=== PATIENT | female | born 1990 | race Caucasian/White ===

== ENCOUNTER 2016-12-07 02:23 | Emergency (ER) | payer OTHER ==
[~2016-12-07] VITALS: Ht 165.1 cm; Wt 56.7 kg
[~2016-12-07 02:23] MED LIST: CARI350T PO; STADOL NS
[2016-12-07 02:50] VITALS: BP 139/86
--- NOTE | 2016-12-07 03:06 | PHYS DOC ---
Past Medical History Past Medical History: Anxiety, Depression, Other Additional Past Medical Histor: Chronic back pain, PPD Past Surgical History: No Surgical History, Cholecystectomy Alcohol Use: None Drug Use: None Adult General Chief Complaint Chief Complaint: ANXIETY/PANIC ATTACK HPI HPI Patient is a 26 year old female who presents here today secondary to "I'm having a panic attack ". Patient reports that she is going through divorce and her has her baby. Patient reports she feels very anxious and is unable sleep. Patient reports she's got some pressure sensation in her midsternal area. Patient has any fevers shakes chills nausea vomiting diarrhea cough cold runny nose. Patient has any abdominal pain. Patient has no history of hypertension diabetes liver longer kidney problems. Patient is status post cholecystectomy. Patient does smoke no alcohol or drugs. No known drug allergies. Last menstrual period is current. No suicidal or homicidal ideations. No hallucinations. No prior mental health issues. Patient reports that she takes Soma for muscle spasms and Stadol for pain. Patient's physical exam is unremarkable the ER. Patient's heart rate is between 100-110. Patient's heart Regular rate and rhythm. Lungs were clear. Abdomen was benign. Neuro GCS of 15. Alert awake and oriented 3. Review of Systems Review of Systems Constitutional: Denies fever or chills [] Eyes: Denies change in visual acuity, redness, or eye pain [] All other review systems are negative except as documented in the history of present illness portion. Allergies Allergies Allergies Coded Allergies Type Severity Reaction Last Updated Verified sertraline Allergy Unknown 12/07/16 Yes amoxicillin Adverse Reaction Intermediate Nausea and Vomiting 04/17/14 No clavulanic acid Adverse Reaction Intermediate Nausea and Vomiting 04/17/14 No Physical Exam Physical Exam Constitutional: Well developed, well nourished, no acute distress, non-toxic appearance. [] HENT: Normocephalic, atraumatic, bilateral external ears normal, Eyes: PERRLA, EOMI, conjunctiva normal, Neck: Normal range of motion, no tenderness, supple, Cardiovascular:Heart rate regular rhythm, no murmur [] Lungs & Thorax: Bilateral breath sounds clear to auscultation [] Abdomen: Bowel sounds normal, soft, no tenderness, no masses, Skin: Warm, dry, no erythema, no rash. [] Back: No tenderness, no CVA tenderness. [] Extremities: No tenderness, no cyanosis, no clubbing, ROM intact, no edema. [] Neurologic: Alert and oriented X 3, normal motor function, normal sensory function, no focal deficits noted. [] Psychologic: Affect normal, judgement normal, mood normal. [] Current Patient Data Vital Signs Vital Signs Date Time Temp Pulse Resp B/P Pulse Ox O2 Delivery O2 Flow Rate FiO2 12/07/16 02:50 98.6 117 24 139/86 100 Room Air 98.6 Lab Values Laboratory Tests Test 12/07/16 02:51 POC Urine HCG, Qualitative Hcg negative (Negative) EKG EKG [] Radiology/Procedures Radiology/Procedures [] Course & Med Decision Making Course & Med Decision Making Pertinent Labs and Imaging studies reviewed. (See chart for details) [] Dragon Disclaimer Dragon Disclaimer This electronic medical record was generated, in whole or in part, using a voice recognition dictation system. Departure Departure Impression: Primary Impression: Anxiety Disposition: 01 HOME, SELF-CARE Condition: STABLE Referrals: NON,STAFF (PCP) Patient Instructions: Anxiety and Panic Attacks HARLEY TORREZ MD Dec 07, 2016 03:06
[2016-12-07] MEDS ORDERED: ALPRAZOLAM 0.5 MG TABLET PO ONE (03:30)
== END 2016-12-07 03:20 | disposition home or self-care (01) ==
LOC: ER 02:23
DX: F41.9 Anxiety disorder, unspecified (principal); F41.0 Panic disorder [episodic paroxysmal anxiety]; G89.29 Other chronic pain; Z88.1 Allergy status to other antibiotic agents; Z88.8 Allergy status to other drugs, medicaments and biological substances
CPT/HCPCS: 81025; 99284

== ENCOUNTER 2016-12-16 19:43 | Emergency (ER) | payer OTHER ==
[~2016-12-16] VITALS: Ht 165.1 cm; Wt 55.8 kg
[2016-12-16 20:30] VITALS: BP 137/86
[2016-12-16 21:31] LABS: OBC FLU VALID
--- NOTE | 2016-12-16 21:46 | PHYS DOC ---
Past Medical History Past Medical History: Anxiety, Depression, Other Additional Past Medical Histor: Chronic back pain, PPD Past Surgical History: Cholecystectomy Smoking: Less than 1pk/day Alcohol Use: None Drug Use: None Adult General Chief Complaint Chief Complaint: EARACHE/EAR PAIN HPI HPI Patient is a 26 year old female who presents with fever and bilateral ear pain for 2 days. She reports temperature up to 100.9F. She is also had nasal congestion, productive cough, and shortness of breath. She denies sore throat or vomiting. She does not have a PCP. Review of Systems Review of Systems Constitutional: Reports fever. Eyes: Denies change in visual acuity, redness, or eye pain. [] HENT: Denies sore throat. Reports bilateral ear pain and nasal congestion. Respiratory: Reports productive cough and shortness of breath. Cardiovascular: Denies chest pain, palpitations or edema. [] GI: Denies abdominal pain, nausea, vomiting, bloody stools or diarrhea. [] : Denies dysuria, hematuria or urinary frequency. [] Musculoskeletal: Denies back pain or joint pain. [] Integument: Denies rash or skin lesions. [] Neurologic: Denies headache, focal weakness or sensory changes. [] Endocrine: Denies polyuria or polydipsia. [] Psych: Denies anxiety or depression. [] All systems reviewed and negative unless otherwise stated in the HPI. Current Medications Current Medications Current Medications Medications (Trade) Dose Ordered Sig/[facility] Start Time Stop Time Status Last Admin Dose Admin Acetaminophen (Tylenol) 1,000 mg 1X ONCE 12/16/16 22:15 12/16/16 22:16 UNV Allergies Allergies Allergies Coded Allergies Type Severity Reaction Last Updated Verified sertraline Allergy Intermediate 12/07/16 Yes amoxicillin Adverse Reaction Intermediate Nausea and Vomiting 04/17/14 No clavulanic acid Adverse Reaction Intermediate Nausea and Vomiting 04/17/14 No Physical Exam Physical Exam Constitutional: Well developed, well nourished, no acute distress, non-toxic appearance. [] HENT: Normocephalic, atraumatic, bilateral external ears normal, oropharynx moist, no oral exudates, nose normal. Bilateral TMs without erythema or bulging. There is no posterior pharyngeal erythema or tonsillar edema. Bilateral nasal turbinates are swollen and erythematous with purulent drainage. Eyes: PERRLA, EOMI, conjunctiva normal, no discharge. [] Neck: Normal range of motion, no tenderness, supple, no stridor. [] Cardiovascular:Heart rate regular rhythm, no murmur [] Lungs & Thorax: X-ray wheezing in the right lower lobe without rales or rhonchi. No respiratory distress. Skin: Warm, dry, no erythema, no rash. [] Neurologic: Alert and oriented X 3, normal motor function, normal sensory function, no focal deficits noted. [] Psychologic: Affect normal, judgement normal, mood normal. [] Current Patient Data Vital Signs Vital Signs Date Time Temp Pulse Resp B/P Pulse Ox O2 Delivery O2 Flow Rate FiO2 12/16/16 20:30 98.6 118 18 98 Room Air 98.6 Lab Values Laboratory Tests Test 12/16/16 20:35 Influenza Type A Antigen Negative (NEGATIVE) Influenza Type B Antigen Negative (NEGATIVE) Rapid strep negative EKG EKG [] Radiology/Procedures Radiology/Procedures PA and lateral chest x-ray reviewed and interpreted by myself with Dr. Kathleen. There are no focal infiltrates to suggest pneumonia. Course & Med Decision Making Course & Med Decision Making Pertinent Labs and Imaging studies reviewed. (See chart for details) [] Dragon Disclaimer Dragon Disclaimer This electronic medical record was generated, in whole or in part, using a voice recognition dictation system. Departure Departure Impression: Primary Impression: Bronchitis Disposition: 01 HOME, SELF-CARE Condition: STABLE Referrals: NO PCP (PCP) Patient Instructions: Acute Bronchitis, [id number] Additional Instructions: Your flu and strep tests were negative. Your chest x-ray does not show pneumonia. You appear to have a viral infection. Antibiotics do not help to treat viruses. Please complete all the prescribed steroids, even if you are feeling better. Please use the prescribed inhaler as needed for cough or shortness of breath. Do not use more often than directed. Please take Tylenol or ibuprofen for fever or pain control. Use according to package instructions. Please follow-up with a primary care provider within the next week. Return to emergency department if you have any new or concerning symptoms. Scripts Albuterol Sulfate (Proair Hfa Inhaler)8.5 Gm [id number] Puff INH Q4HRS PRN SHORTNESS OF BREATH #1 INHALER Prov:KARLA INTERIANO 12/16/16 Prednisone 20 Mg [id number] Mg PO DAILY 5 Days Prov:KARLA INTERIANO 12/16/16 KARLA INTERIANO Dec 16, 2016 21:46
[2016-12-16] MEDS ORDERED: PRED20TA PO (22:13)
[2016-12-16] MEDS ORDERED: PROAIR HFA8.5 GM INH (22:13)
[2016-12-16] MEDS ORDERED: ACETAMINOPHEN 500 MG TABLET PO ONE (22:15)
--- NOTE | 2016-12-17 07:53 | RAD ---
Indication: Cough and wheezing. Technique: Two-view chest radiograph was obtained. No comparison is available at this institution. Findings: Bandlike opacity on the lateral film is likely an area of scarring with splaying of left ribs compatible with prior thoracotomy. Comparison to priors would be beneficial. No definite airspace disease is apparent. Heart is not enlarged and there is no definite heart failure. Bony structures are intact. There are clips in the gallbladder fossa. Impression: Postoperative findings presumably from prior thoracotomy. No superimposed airspace disease.
[2016-12-17 07:54] LABS: NEGATIVE OBC STREP NEG; POSITIVE OBC STREP POS
== END 2016-12-16 22:20 | disposition home or self-care (01) ==
LOC: ER 19:43
DX: J40 Bronchitis, not specified as acute or chronic (principal); H92.03 Otalgia, bilateral; F41.9 Anxiety disorder, unspecified; F32.9 Major depressive disorder, single episode, unspecified; G89.29 Other chronic pain; F17.210 Nicotine dependence, cigarettes, uncomplicated; Z88.1 Allergy status to other antibiotic agents; Z88.8 Allergy status to other drugs, medicaments and biological substances
CPT/HCPCS: 71020; 87070; 87804; 87880; 99285-25

== ENCOUNTER 2018-06-15 13:42 | Inpatient (IN) | payer SELFPAY ==
[~2018-06-15] VITALS: Ht 165.1 cm; Wt 77.7 kg
[~2018-06-15 13:42] MED LIST changes: +PRED20TA PO; +PROAIR HFA8.5 GM INH
[2018-06-15] MEDS ORDERED: ONDANSETRON PF 4 MG/2 ML VIAL. IV ONE (14:15)
[2018-06-15] MEDS ORDERED: MORPHINE SULFATE 4 MG/ML VIAL. IV ONE (14:15)
[2018-06-15] MEDS ORDERED: IV NORMAL SALINE 1000ML BAG 1,000 ML IV ONE ×2 (14:15→15:30)
[2018-06-15] MEDS ORDERED: IOHEXOL 300 MG/ML 100ML VIAL. IV ONE (14:30)
[2018-06-15] MEDS ORDERED: CONTRAST GIVEN. MC PRN (14:30)
[2018-06-15 14:49] LABS: BILIRUBIN,URINE NEGATIVE (NEG); CLARITY,URINE CLEAR; COLOR,URINE YELLOW; NITRITE,URINE POSITIVE (NEG); PROTEIN,URINE 30 mg/dL (NEG-TRACE)
[2018-06-15 14:56] LABS: BACTERIA,URINE MANY /HPF (0-FEW); RBC,URINE RARE /HPF (0-2); SQUAMOUS EPITHELIAL CELL,UR MOD /LPF
--- NOTE | 2018-06-15 15:00 | PHYS DOC ---
Past Medical History Past Medical History: Anxiety, Depression, Other Additional Past Medical Histor: Chronic back pain, PPD Past Surgical History: Cholecystectomy Alcohol Use: None Drug Use: None Adult General Chief Complaint Chief Complaint: FEVER HPI HPI Patient is a 28 year old female presents to the ED complaining of fever 3 days. Patient states she has had a fever over the last 3 days. States she had taken Tylenol today but her fever was 102.1. Associated symptoms include diarrhea for 1 week and lower abdominal pain. Describes the pain as sharp. Rates the pain as 6 out of 10. Denies cough, chest pain, shortness of breath, headache, dysuria, hematuria, back pain, neck pain or vision change. Review of Systems Review of Systems Constitutional: Denies fever or chills [] Eyes: Denies change in visual acuity, redness, or eye pain [] HENT: Denies nasal congestion or sore throat [] Respiratory: Denies cough or shortness of breath [] Cardiovascular: No additional information not addressed in HPI [] GI: Denies abdominal pain, nausea, vomiting, bloody stools or diarrhea [] : Denies dysuria or hematuria [] Musculoskeletal: Denies back pain or joint pain [] Integument: Denies rash or skin lesions [] Neurologic: Denies headache, focal weakness or sensory changes [] Endocrine: Denies polyuria or polydipsia [] All other systems were reviewed and found to be within normal limits, except as documented in this note. Current Medications Current Medications Current Medications Medications (Trade) Dose Ordered Sig/Fede Start Time Stop Time Status Last Admin Dose Admin Ceftriaxone Sodium 50 ml @ 100 mls/hr 1X ONCE 06/15/18 15:30 06/15/18 15:30 DC Info (CONTRAST GIVEN -- Rx MONITORING) 1 each PRN DAILY PRN 06/15/18 14:30 06/17/18 14:29 DC Iohexol (Omnipaque 300 Mg/ml) 75 ml 1X ONCE 06/15/18 14:30 06/15/18 14:31 DC 06/15/18 15:43 75 ML Levofloxacin/ Dextrose 150 ml @ 100 mls/hr 1X ONCE 06/15/18 15:30 06/15/18 16:59 DC 06/15/18 15:53 100 MLS/HR Morphine Sulfate (Morphine Sulfate) 4 mg 1X ONCE 06/15/18 14:15 06/15/18 14:16 DC 06/15/18 14:57 4 MG Ondansetron HCl (Zofran) 4 mg 1X ONCE 06/15/18 14:15 06/15/18 14:16 DC 06/15/18 14:57 4 MG Potassium Chloride (Klor-Con) 40 meq 1X ONCE 06/15/18 15:45 06/15/18 15:46 DC 06/15/18 15:52 40 MEQ Sodium Chloride 1,000 ml @ 1,000 mls/hr 1X ONCE 06/15/18 15:30 06/15/18 16:29 DC 06/15/18 15:52 1,000 MLS/HR Allergies Allergies Allergies Coded Allergies Type Severity Reaction Last Updated Verified sertraline Allergy Intermediate 12/07/16 Yes amoxicillin Adverse Reaction Intermediate Nausea and Vomiting 04/17/14 No clavulanic acid Adverse Reaction Intermediate Nausea and Vomiting 04/17/14 No Physical Exam Physical Exam Constitutional: Well developed, well nourished, no acute distress, non-toxic appearance. [] HENT: Normocephalic, atraumatic, bilateral external ears normal, oropharynx moist, no oral exudates, nose normal. [] Eyes: PERRLA, EOMI, conjunctiva normal, no discharge. [] Neck: Normal range of motion, no tenderness, supple, no stridor. [] Cardiovascular:Heart rate regular rhythm, no murmur [] Lungs & Thorax: Bilateral breath sounds clear to auscultation [] Abdomen: Bowel sounds normal, soft, no tenderness, no masses, no pulsatile masses. [] Skin: Warm, dry, no erythema, no rash. [] Back: No tenderness, mild CVA tenderness. [] Extremities: No tenderness, no cyanosis, no clubbing, ROM intact, no edema. [] Neurologic: Alert and oriented X 3, normal motor function, normal sensory function, no focal deficits noted. [] Psychologic: Affect normal, judgement normal, mood normal. [] Current Patient Data Vital Signs Vital Signs Date Time Temp Pulse Resp B/P (MAP) Pulse Ox O2 Delivery O2 Flow Rate FiO2 06/15/18 16:15 99 18 90/54 (66) 99 Room Air 06/15/18 13:55 98.2 98.2 Lab Values Laboratory Tests Test 06/15/18 14:30 06/15/18 14:34 06/15/18 14:39 06/15/18 14:50 Urine Collection Type Unknown Urine Color Yellow Urine Clarity Clear Urine pH 6.0 Urine Specific [place] 1.020 Urine Protein 30 mg/dL (NEG-TRACE) Urine Glucose (UA) 100 mg/dL (NEG) Urine Ketones (Stick) Negative mg/dL (NEG) Urine Blood Trace (NEG) Urine Nitrite Positive (NEG) Urine Bilirubin Negative (NEG) Urine Urobilinogen Dipstick 1.0 mg/dL (0.2 mg/dL) Urine Leukocyte Esterase Moderate (NEG) Urine RBC Rare /HPF (0-2) Urine WBC 11-20 /HPF (0-4) Urine Squamous Epithelial Cells Mod /LPF Urine Bacteria Many /HPF (0-FEW) Urine Mucus Mod /LPF POC Urine HCG, Qualitative Hcg negative (Negative) Group A Streptococcus Rapid Negative (NEGATIVE) White Blood Count 19.0 x10^3/uL (4.0-11.0) H Red Blood Count 3.88 x10^6/uL (3.50-5.40) Hemoglobin 10.6 g/dL (12.0-15.5) L Hematocrit 32.0 % (36.0-47.0) L Mean Corpuscular Volume 82 fL (79-100) Mean Corpuscular Hemoglobin 27 pg (25-35) Mean Corpuscular Hemoglobin Concent 33 g/dL (31-37) Red Cell Distribution Width 16.3 % (11.5-14.5) H Platelet Count 341 x10^3/uL (140-400) Neutrophils (%) (Auto) 86 % (31-73) H Lymphocytes (%) (Auto) 6 % (24-48) L Monocytes (%) (Auto) 8 % (0-9) Eosinophils (%) (Auto) 0 % (0-3) Basophils (%) (Auto) 0 % (0-3) Neutrophils # (Auto) 16.3 x10^3uL (1.8-7.7) H Lymphocytes # (Auto) 1.1 x10^3/uL (1.0-4.8) Monocytes # (Auto) 1.5 x10^3/uL (0.0-1.1) H Eosinophils # (Auto) 0.0 x10^3/uL (0.0-0.7) Basophils # (Auto) 0.1 x10^3/uL (0.0-0.2) Segmented Neutrophils % 87 % (35-66) H Lymphocytes % 1 % (24-48) L Monocytes % 12 % (0-10) H Platelet Estimate Adequate (ADEQUATE) Sodium Level 134 mmol/L (136-145) L Potassium Level 2.9 mmol/L (3.5-5.1) *L Chloride Level 100 mmol/L (98-107) Carbon Dioxide Level 22 mmol/L (21-32) Anion Gap 12 (6-14) Blood Urea Nitrogen 8 mg/dL (7-20) Creatinine 0.9 mg/dL (0.6-1.0) Estimated GFR (Cockcroft-Gault) 75.1 BUN/Creatinine Ratio 9 (6-20) Glucose Level 106 mg/dL (70-99) H Calcium Level 8.6 mg/dL (8.5-10.1) Total Bilirubin 0.3 mg/dL (0.2-1.0) Aspartate Amino Transferase (AST) 11 U/L (15-37) L Alanine Aminotransferase (ALT) 14 U/L (14-59) Alkaline Phosphatase 127 U/L (46-116) H Total Protein 7.8 g/dL (6.4-8.2) Albumin 3.8 g/dL (3.4-5.0) Albumin/Globulin Ratio 1.0 (1.0-1.7) Lipase 72 U/L (73-393) L Test 06/15/18 15:40 Lactic Acid Level 0.4 mmol/L (0.4-2.0) Laboratory Tests 06/15/18 14:50 Laboratory Tests 06/15/18 14:50 Microbiology 06/15/18 Blood Culture - Preliminary, Resulted NO GROWTH AFTER 2 DAYS 06/15/18 Throat Culture - Final, Complete 06/15/18 - Final, Complete EKG EKG [] Radiology/Procedures Radiology/Procedures PROCEDURE: CT ABD PELV W/ IV CONTRST ONLY PQRS Compliance Statement: One or more of the following individualized dose reduction techniques were utilized for this examination: 1. Automated exposure control 2. Adjustment of the mA and/or kV according to patient size 3. Use of iterative reconstruction technique CT abdomen/pelvis with contrast 06/15/2018 3:41 PM INDICATION: Abdominal pain and fever. Right lower quadrant tenderness. COMPARISON: None available TECHNIQUE: Multiple axial CT images of the abdomen and pelvis were obtained after the intravenous administration of 75 mL Omnipaque 300. Coronal and sagittal reformats are provided. FINDINGS: Subsegmental atelectasis is noted in the inferior lingula and right middle lobe. Heart size is within normal limits. Liver, spleen, bilateral adrenal glands and pancreas are normal in appearance. Gallbladder surgically absent. There is no intrahepatic or extrahepatic biliary ductal dilatation. The abdominal aorta is normal in course and caliber. There are no pathologically enlarged lymph nodes in the abdomen and pelvis. There is no abdominal free fluid. There is no free intraperitoneal air. The kidneys enhance symmetrically. There is no suspicious renal mass. There is no hydronephrosis. There are no suspected calculi within the kidneys, ureters or urinary bladder. Small and large bowel are normal in caliber. There is no evidence for bowel obstruction. There are no pericolonic inflammatory changes. A normal, nondilated appendix is visualized without adjacent inflammatory changes. Uterus is normal in appearance. There is a cystic right adnexal lesion measuring 3.6 x 3.2 x 4.0 cm. No significant free fluid is identified within the pelvis. Follicular changes are noted in the left adnexa. Urinary bladder is within normal limits. No suspicious osseous abnormality is visualized. IMPRESSION: 1. Cystic right adnexal lesion measures 2.6 x 3.2 x 4.0 cm. This may represent a hemorrhagic cyst. Further evaluation with pelvic ultrasound may be of benefit. 2. Appendix is normal.[] Course & Med Decision Making Course & Med Decision Making Pertinent Labs and Imaging studies reviewed. (See chart for details) Patient given 2 liters of fluids and levaquin in the ED. Afebrile. States she is feeling better. []Discussed case with hospitalist, Dr. Meyer. Agrees to admission and further management of patient. Patient stable for admission. Staff Physician Addendum: I was working in the ER during the course of this patient's visit. I was available for consultation as needed, but I was not directly involved in the care of this patient. Dragon Disclaimer Dragon Disclaimer This electronic medical record was generated, in whole or in part, using a voice recognition dictation system. Departure Departure Impression: Primary Impression: Pyelonephritis Additional Impression: Hypokalemia Disposition: 09 ADMITTED INPATIENT Admitting Physician: Papi Meyer Condition: STABLE Referrals: NO PCP (PCP) Scripts Levofloxacin (LEVAQUIN) 500 Mg Tablet 500 MG PO DAILY06 for 10 Days, #10 TAB Prov: FLORENCIA AHMADI MD 06/17/18 Problem Qualifiers SALIMA VALENCIA Jun 15, 2018 15:00 ISABELL SANDOVAL MD Jun 18, 2018 02:11
[2018-06-15 15:14] LABS: BASO # 0.1 x10^3/uL (0.0-0.2); BASO % 0 % (0-3); EOS % 0 % (0-3); HEMOGLOBIN 10.6 g/dL (12.0-15.5); LYMPH # 1.1 x10^3/uL (1.0-4.8); LYMPH % 6 % (24-48); MEAN CORPUSCULAR HEMOGLOBIN 27 pg (25-35); MEAN CORPUSCULAR HGB CONC 33 g/dL (31-37); MEAN CORPUSCULAR VOLUME 82 fL (79-100); MONO # 1.5 x10^3/uL (0.0-1.1); MONO % 8 % (0-9); NEUT # 16.3 x10^3uL (1.8-7.7); NEUT % 86 % (31-73); PLATELET COUNT 341 x10^3/uL (140-400); RED BLOOD COUNT 3.88 x10^6/uL (3.50-5.40); RED CELL DISTRIBUTION WIDTH 16.3 % (11.5-14.5)
[2018-06-15 15:25] LABS: ALBUMIN 3.8 g/dL (3.4-5.0); TOTAL PROTEIN 7.8 g/dL (6.4-8.2)
[2018-06-15 15:26] LABS: CALCIUM 8.6 mg/dL (8.5-10.1); CREATININE 0.9 mg/dL (0.6-1.0); GFR 75.1; TOTAL BILIRUBIN 0.3 mg/dL (0.2-1.0)
[2018-06-15 15:30] LABS: POTASSIUM 2.9 mmol/L (3.5-5.1)
[2018-06-15] MEDS ORDERED: POTASSIUM CHLORIDE 20 MEQ TABLET.ER. PO ONE (15:45)
[2018-06-15 15:46] LABS: % LYMPHS 1 % (24-48); % MONOS 12 % (0-10); % SEGS 87 % (35-66)
[2018-06-15 15:47] LABS: PLT ESTIMATE ADEQUATE (ADEQUATE)
--- NOTE | 2018-06-15 16:02 | RAD ---
PQRS Compliance Statement: One or more of the following individualized dose reduction techniques were utilized for this examination: 1. Automated exposure control 2. Adjustment of the mA and/or kV according to patient size 3. Use of iterative reconstruction technique CT abdomen/pelvis with contrast 06/15/2018 3:41 PM INDICATION: Abdominal pain and fever. Right lower quadrant tenderness. COMPARISON: None available TECHNIQUE: Multiple axial CT images of the abdomen and pelvis were obtained after the intravenous administration of 75 mL Omnipaque 300. Coronal and sagittal reformats are provided. FINDINGS: Subsegmental atelectasis is noted in the inferior lingula and right middle lobe. Heart size is within normal limits. Liver, spleen, bilateral adrenal glands and pancreas are normal in appearance. Gallbladder surgically absent. There is no intrahepatic or extrahepatic biliary ductal dilatation. The abdominal aorta is normal in course and caliber. There are no pathologically enlarged lymph nodes in the abdomen and pelvis. There is no abdominal free fluid. There is no free intraperitoneal air. The kidneys enhance symmetrically. There is no suspicious renal mass. There is no hydronephrosis. There are no suspected calculi within the kidneys, ureters or urinary bladder. Small and large bowel are normal in caliber. There is no evidence for bowel obstruction. There are no pericolonic inflammatory changes. A normal, nondilated appendix is visualized without adjacent inflammatory changes. Uterus is normal in appearance. There is a cystic right adnexal lesion measuring 3.6 x 3.2 x 4.0 cm. No significant free fluid is identified within the pelvis. Follicular changes are noted in the left adnexa. Urinary bladder is within normal limits. No suspicious osseous abnormality is visualized. IMPRESSION: 1. Cystic right adnexal lesion measures 2.6 x 3.2 x 4.0 cm. This may represent a hemorrhagic cyst. Further evaluation with pelvic ultrasound may be of benefit. 2. Appendix is normal. Electronically signed by: Talya Hung MD (06/15/2018 3:59 PM) [id number]
[2018-06-15] MEDS ORDERED: ONDANSETRON PF 4 MG/2 ML VIAL. IV PRN (16:45)
[2018-06-15] MEDS ORDERED: ACETAMINOPHEN 325 MG TABLET. PO PRN (16:45)
--- NOTE | 2018-06-15 16:49 | RAD ---
Pelvic ultrasound History: Right ovarian cyst on CT Comparison: CT abdomen pelvis June 15, 2018. Technique: Transabdominal imaging of the pelvis was performed. Findings: The uterus measures 8.0 cm in length and is unremarkable. The endometrium measures 4 mm. Right ovary measures 4.0 x 5.4 x 3.0 cm and demonstrates 3.1 cm cyst. The left ovary measures 3.7 x 1.7 x 1.4 cm and is unremarkable. No adnexal masses are identified. No significant free fluid is identified within the pelvis. Both ovaries demonstrate normal vascular flow upon Doppler interrogation and are without evidence of torsion. Impression: 1. Functional right ovarian cyst. No evidence of torsion. Electronically signed by: Mk Jimenez MD (06/15/2018 4:46 PM) [place] [id number]
[2018-06-15] MEDS ORDERED: levOFLOXacin PER PHARMACY. MC PRN (18:45)
--- NOTE | 2018-06-15 19:17 | HP ---
ADMIT DATE: 06/15/2018 CHIEF COMPLAINT: Abdominal pain, fevers, nausea and weakness. HISTORY OF PRESENT ILLNESS: The patient is a pleasant 28-year-old female who has a previous history of pyelonephritis. I believe I have admitted her in the past for similar issues. She seems familiar to me. Basically, she presented with fevers, abdominal pain, weakness, some nausea. We checked her urine. It appears she does have a UTI. Her fever is also 102. Clinically, she has pyelonephritis. I have discussed the case with ER physician. We are going to admit the patient and give her IV fluids, IV antibiotics. PAST MEDICAL HISTORY: UTIs and pyelo, chronic pain, depression, anxiety, cholecystectomy. ALLERGIES: AMOXICILLIN AND SERTRALINE. FAMILY HISTORY: Diabetes. SOCIAL HISTORY: She does not drink, smoke or take drugs. MEDICATIONS: Reviewed, please refer to MRAD. REVIEW OF SYSTEMS: GENERAL: No history of weight change or weakness. She complains of fever. SKIN: No bruising, hair changes or rashes. EYES: No blurred, double or loss of vision. NOSE AND THROAT: No history of nosebleeds, hoarseness or sore throat. HEART: No history of palpitations, chest pain or shortness of breath on exertion. LUNGS: Denies cough, hemoptysis, wheezing or shortness of breath. GASTROINTESTINAL: Denies changes in appetite, nausea, vomiting, diarrhea or constipation. Complains of abdominal pain. GENITOURINARY: No history of frequency, urgency, hesitancy or nocturia. NEUROLOGIC: Denies history of numbness, tingling, tremor or weakness. PSYCHIATRIC: No history of panic, anxiety or depression. ENDOCRINE: No history of heat or cold intolerance, polyuria or polydipsia. EXTREMITIES: Denies muscle weakness, joint pain, pain on walking or stiffness. PHYSICAL EXAMINATION: VITAL SIGNS: Temperature 98.2 currently, pulse 104, respirations 16, blood pressure 103/54. GENERAL: She is alert, cooperative. HEART: Normal S1, S2. LUNGS: Clear. ABDOMEN: Soft and tender. EXTREMITIES: No edema. SKIN: No rashes. ENDOCRINE: No thyromegaly. LYMPHATICS: No cervical nodes. HEMATOPOIETIC: No bruising. LABORATORY DATA: White count is 19, hemoglobin 10.6. Potassium is low at 2.9. Sodium is low at 134. Urinalysis shows 11-20 white cells with moderate leukocyte esterase. ASSESSMENT AND PLAN: Pyelonephritis, hyponatremia, hypokalemia, leukocytosis and anemia. The patient has been admitted. We will give her IV antibiotics, IV fluids, replace her potassium. Continue home meds, frequent labs. RETA ALVAREZ DO DR: IRMA/mikala JOB#: [id number] / [id number]
[2018-06-15 20:00] VITALS: BP 121/72
[2018-06-15] MEDS: fentaNYL PF VIAL 100 MCG/2 ML VIAL IV PRN ×2 (20:10→22:34)
[2018-06-15] MEDS: IV NORMAL SALINE 1000ML BAG 1,000 ML IV SCH (20:10)
[2018-06-15 23:00] VITALS: BP 110/56
[2018-06-15] MEDS: IBUPROFEN 600 MG TABLET. PO PRN (23:05)
[2018-06-16 03:00] VITALS: BP 84/42
[2018-06-16 04:06] VITALS: BP 96/59
[2018-06-16] MEDS: IV NORMAL SALINE 1000ML BAG 1,000 ML IV SCH ×3 (05:45→23:58)
[2018-06-16] MEDS: fentaNYL PF VIAL 100 MCG/2 ML VIAL IV PRN (06:12)
[2018-06-16] MEDS ORDERED: ACETAMINOPHEN 325 MG TABLET. PO PRN (09:15)
[2018-06-16] MEDS ORDERED: ONDANSETRON PF 4 MG/2 ML VIAL. IV PRN (09:15)
[2018-06-16 09:36] LABS: BASO % 0 % (0-3); EOS % 0 % (0-3); HEMATOCRIT 28.2 % (36.0-47.0); LYMPH # 1.3 x10^3/uL (1.0-4.8); LYMPH % 9 % (24-48); MEAN CORPUSCULAR HEMOGLOBIN 27 pg (25-35); MEAN CORPUSCULAR HGB CONC 32 g/dL (31-37); MEAN CORPUSCULAR VOLUME 84 fL (79-100); MONO # 1.2 x10^3/uL (0.0-1.1); MONO % 9 % (0-9); NEUT % 82 % (31-73); PLATELET COUNT 252 x10^3/uL (140-400); RED BLOOD COUNT 3.35 x10^6/uL (3.50-5.40); RED CELL DISTRIBUTION WIDTH 16.7 % (11.5-14.5); WHITE BLOOD COUNT 14.7 x10^3/uL (4.0-11.0)
[2018-06-16] MEDS: ACETAMINOPHEN/CODEINE 300/30MG TABLET. PO PRN ×2 (10:04→18:35)
[2018-06-16 10:14] LABS: ALBUMIN 2.8 g/dL (3.4-5.0); ALBUMIN/GLOBULIN RATIO 0.8 (1.0-1.7); CALCIUM 8.2 mg/dL (8.5-10.1); CREATININE 0.7 mg/dL (0.6-1.0); GFR 100.4; POTASSIUM 3.6 mmol/L (3.5-5.1); TOTAL BILIRUBIN 0.3 mg/dL (0.2-1.0); TOTAL PROTEIN 6.3 g/dL (6.4-8.2)
[2018-06-16 11:00] VITALS: BP 116/60
--- NOTE | 2018-06-16 13:12 | PDOC ---
PROGRESS NOTES Chief Complaint Chief Complaint UTI, no pyelonephritis Sepsis POA with target organ - hypotension Fevers Mild hypokalemia Mild hyponatremia Hypotension History of Present Illness History of Present Illness fevers persist UA shows UTI SOme flank pains subjective But CAT scan of abdomen and pelvis does not show any perinephric stranding-no kidney stones Blood pressure on the low side Plan: Increase fluids to 1 25 mL an hour Boluses when necessary for hypertension Continue monitor fever but no throat issues hence cancel throat culture- fevers likely from UTI Replace potassium (was low) Check labs again tomorrow-monitor that leukocytosis of 19. Hemoglobin 10. Mild hyponatremia 134 Vitals Vitals Vital Signs Date Time Temp Pulse Resp B/P (MAP) Pulse Ox O2 Delivery O2 Flow Rate FiO2 06/16/18 12:30 96 06/16/18 11:00 100.9 117 20 116/60 (78) Room Air 100.9 Physical Exam General: Alert, Oriented X3, Cooperative, No acute distress Heart: Regular rate, Normal S1, Normal S2, No murmurs Lungs: Clear Abdomen: Normal bowel sounds, Soft, No tenderness Extremities: No clubbing, No cyanosis, No edema Skin: No rashes, No breakdown, No significant lesion Labs LABS Laboratory Tests Test 06/15/18 14:30 06/15/18 14:34 06/15/18 14:39 06/15/18 14:50 Urine Collection Type Unknown Urine Color Yellow Urine Clarity Clear Urine pH 6.0 Urine Specific [place] 1.020 Urine Protein 30 mg/dL (NEG-TRACE) Urine Glucose (UA) 100 mg/dL (NEG) Urine Ketones (Stick) Negative mg/dL (NEG) Urine Blood Trace (NEG) Urine Nitrite Positive (NEG) Urine Bilirubin Negative (NEG) Urine Urobilinogen Dipstick 1.0 mg/dL (0.2 mg/dL) Urine Leukocyte Esterase Moderate (NEG) Urine RBC Rare /HPF (0-2) Urine WBC 11-20 /HPF (0-4) Urine Squamous Epithelial Cells Mod /LPF Urine Bacteria Many /HPF (0-FEW) Urine Mucus Mod /LPF Bedside Urine HCG, Qualitative Hcg negative (Negative) Group A Streptococcus Rapid Negative (NEGATIVE) White Blood Count 19.0 x10^3/uL (4.0-11.0) Red Blood Count 3.88 x10^6/uL (3.50-5.40) Hemoglobin 10.6 g/dL (12.0-15.5) Hematocrit 32.0 % (36.0-47.0) Mean Corpuscular Volume 82 fL (79-100) Mean Corpuscular Hemoglobin 27 pg (25-35) Mean Corpuscular Hemoglobin Concent 33 g/dL (31-37) Red Cell Distribution Width 16.3 % (11.5-14.5) Platelet Count 341 x10^3/uL (140-400) Neutrophils (%) (Auto) 86 % (31-73) Lymphocytes (%) (Auto) 6 % (24-48) Monocytes (%) (Auto) 8 % (0-9) Eosinophils (%) (Auto) 0 % (0-3) Basophils (%) (Auto) 0 % (0-3) Neutrophils # (Auto) 16.3 x10^3uL (1.8-7.7) Lymphocytes # (Auto) 1.1 x10^3/uL (1.0-4.8) Monocytes # (Auto) 1.5 x10^3/uL (0.0-1.1) Eosinophils # (Auto) 0.0 x10^3/uL (0.0-0.7) Basophils # (Auto) 0.1 x10^3/uL (0.0-0.2) Segmented Neutrophils % 87 % (35-66) Lymphocytes % 1 % (24-48) Monocytes % 12 % (0-10) Platelet Estimate Adequate (ADEQUATE) Sodium Level 134 mmol/L (136-145) Potassium Level 2.9 mmol/L (3.5-5.1) Chloride Level 100 mmol/L (98-107) Carbon Dioxide Level 22 mmol/L (21-32) Anion Gap 12 (6-14) Blood Urea Nitrogen 8 mg/dL (7-20) Creatinine 0.9 mg/dL (0.6-1.0) Estimated GFR (Cockcroft-Gault) 75.1 BUN/Creatinine Ratio 9 (6-20) Glucose Level 106 mg/dL (70-99) Calcium Level 8.6 mg/dL (8.5-10.1) Total Bilirubin 0.3 mg/dL (0.2-1.0) Aspartate Amino Transf (AST/SGOT) 11 U/L (15-37) Alanine Aminotransferase (ALT/SGPT) 14 U/L (14-59) Alkaline Phosphatase 127 U/L (46-116) Total Protein 7.8 g/dL (6.4-8.2) Albumin 3.8 g/dL (3.4-5.0) Albumin/Globulin Ratio 1.0 (1.0-1.7) Lipase 72 U/L (73-393) Test 06/15/18 15:40 06/16/18 08:50 Lactic Acid Level 0.4 mmol/L (0.4-2.0) White Blood Count 14.7 x10^3/uL (4.0-11.0) Red Blood Count 3.35 x10^6/uL (3.50-5.40) Hemoglobin 9.0 g/dL (12.0-15.5) Hematocrit 28.2 % (36.0-47.0) Mean Corpuscular Volume 84 fL (79-100) Mean Corpuscular Hemoglobin 27 pg (25-35) Mean Corpuscular Hemoglobin Concent 32 g/dL (31-37) Red Cell Distribution Width 16.7 % (11.5-14.5) Platelet Count 252 x10^3/uL (140-400) Neutrophils (%) (Auto) 82 % (31-73) Lymphocytes (%) (Auto) 9 % (24-48) Monocytes (%) (Auto) 9 % (0-9) Eosinophils (%) (Auto) 0 % (0-3) Basophils (%) (Auto) 0 % (0-3) Neutrophils # (Auto) 12.0 x10^3uL (1.8-7.7) Lymphocytes # (Auto) 1.3 x10^3/uL (1.0-4.8) Monocytes # (Auto) 1.2 x10^3/uL (0.0-1.1) Eosinophils # (Auto) 0.0 x10^3/uL (0.0-0.7) Basophils # (Auto) 0.0 x10^3/uL (0.0-0.2) Sodium Level 134 mmol/L (136-145) Potassium Level 3.6 mmol/L (3.5-5.1) Chloride Level 103 mmol/L (98-107) Carbon Dioxide Level 20 mmol/L (21-32) Anion Gap 11 (6-14) Blood Urea Nitrogen 4 mg/dL (7-20) Creatinine 0.7 mg/dL (0.6-1.0) Estimated GFR (Cockcroft-Gault) 100.4 BUN/Creatinine Ratio 6 (6-20) Glucose Level 91 mg/dL (70-99) Calcium Level 8.2 mg/dL (8.5-10.1) Total Bilirubin 0.3 mg/dL (0.2-1.0) Aspartate Amino Transf (AST/SGOT) 10 U/L (15-37) Alanine Aminotransferase (ALT/SGPT) 13 U/L (14-59) Alkaline Phosphatase 124 U/L (46-116) Total Protein 6.3 g/dL (6.4-8.2) Albumin 2.8 g/dL (3.4-5.0) Albumin/Globulin Ratio 0.8 (1.0-1.7) Review of Systems Review of Systems mild Flank pains, fever, the rest of ROS 14 point negative Assessment and Plan Assessmemt and Plan Problems Medical Problems: (1) Hypokalemia Status: Acute (2) Pyelonephritis Status: Acute Comment Review of Relevant I have reviewed the following items bijal (where applicable) has been applied. Labs Laboratory Tests Test 06/15/18 14:30 06/15/18 14:34 06/15/18 14:39 06/15/18 14:50 Urine Collection Type Unknown Urine Color Yellow Urine Clarity Clear Urine pH 6.0 Urine Specific [place] 1.020 Urine Protein 30 mg/dL (NEG-TRACE) Urine Glucose (UA) 100 mg/dL (NEG) Urine Ketones (Stick) Negative mg/dL (NEG) Urine Blood Trace (NEG) Urine Nitrite Positive (NEG) Urine Bilirubin Negative (NEG) Urine Urobilinogen Dipstick 1.0 mg/dL (0.2 mg/dL) Urine Leukocyte Esterase Moderate (NEG) Urine RBC Rare /HPF (0-2) Urine WBC 11-20 /HPF (0-4) Urine Squamous Epithelial Cells Mod /LPF Urine Bacteria Many /HPF (0-FEW) Urine Mucus Mod /LPF Bedside Urine HCG, Qualitative Hcg negative (Negative) Group A Streptococcus Rapid Negative (NEGATIVE) White Blood Count 19.0 x10^3/uL (4.0-11.0) Red Blood Count 3.88 x10^6/uL (3.50-5.40) Hemoglobin 10.6 g/dL (12.0-15.5) Hematocrit 32.0 % (36.0-47.0) Mean Corpuscular Volume 82 fL (79-100) Mean Corpuscular Hemoglobin 27 pg (25-35) Mean Corpuscular Hemoglobin Concent 33 g/dL (31-37) Red Cell Distribution Width 16.3 % (11.5-14.5) Platelet Count 341 x10^3/uL (140-400) Neutrophils (%) (Auto) 86 % (31-73) Lymphocytes (%) (Auto) 6 % (24-48) Monocytes (%) (Auto) 8 % (0-9) Eosinophils (%) (Auto) 0 % (0-3) Basophils (%) (Auto) 0 % (0-3) Neutrophils # (Auto) 16.3 x10^3uL (1.8-7.7) Lymphocytes # (Auto) 1.1 x10^3/uL (1.0-4.8) Monocytes # (Auto) 1.5 x10^3/uL (0.0-1.1) Eosinophils # (Auto) 0.0 x10^3/uL (0.0-0.7) Basophils # (Auto) 0.1 x10^3/uL (0.0-0.2) Segmented Neutrophils % 87 % (35-66) Lymphocytes % 1 % (24-48) Monocytes % 12 % (0-10) Platelet Estimate Adequate (ADEQUATE) Sodium Level 134 mmol/L (136-145) Potassium Level 2.9 mmol/L (3.5-5.1) Chloride Level 100 mmol/L (98-107) Carbon Dioxide Level 22 mmol/L (21-32) Anion Gap 12 (6-14) Blood Urea Nitrogen 8 mg/dL (7-20) Creatinine 0.9 mg/dL (0.6-1.0) Estimated GFR (Cockcroft-Gault) 75.1 BUN/Creatinine Ratio 9 (6-20) Glucose Level 106 mg/dL (70-99) Calcium Level 8.6 mg/dL (8.5-10.1) Total Bilirubin 0.3 mg/dL (0.2-1.0) Aspartate Amino Transf (AST/SGOT) 11 U/L (15-37) Alanine Aminotransferase (ALT/SGPT) 14 U/L (14-59) Alkaline Phosphatase 127 U/L (46-116) Total Protein 7.8 g/dL (6.4-8.2) Albumin 3.8 g/dL (3.4-5.0) Albumin/Globulin Ratio 1.0 (1.0-1.7) Lipase 72 U/L (73-393) Test 06/15/18 15:40 06/16/18 08:50 Lactic Acid Level 0.4 mmol/L (0.4-2.0) White Blood Count 14.7 x10^3/uL (4.0-11.0) Red Blood Count 3.35 x10^6/uL (3.50-5.40) Hemoglobin 9.0 g/dL (12.0-15.5) Hematocrit 28.2 % (36.0-47.0) Mean Corpuscular Volume 84 fL (79-100) Mean Corpuscular Hemoglobin 27 pg (25-35) Mean Corpuscular Hemoglobin Concent 32 g/dL (31-37) Red Cell Distribution Width 16.7 % (11.5-14.5) Platelet Count 252 x10^3/uL (140-400) Neutrophils (%) (Auto) 82 % (31-73) Lymphocytes (%) (Auto) 9 % (24-48) Monocytes (%) (Auto) 9 % (0-9) Eosinophils (%) (Auto) 0 % (0-3) Basophils (%) (Auto) 0 % (0-3) Neutrophils # (Auto) 12.0 x10^3uL (1.8-7.7) Lymphocytes # (Auto) 1.3 x10^3/uL (1.0-4.8) Monocytes # (Auto) 1.2 x10^3/uL (0.0-1.1) Eosinophils # (Auto) 0.0 x10^3/uL (0.0-0.7) Basophils # (Auto) 0.0 x10^3/uL (0.0-0.2) Sodium Level 134 mmol/L (136-145) Potassium Level 3.6 mmol/L (3.5-5.1) Chloride Level 103 mmol/L (98-107) Carbon Dioxide Level 20 mmol/L (21-32) Anion Gap 11 (6-14) Blood Urea Nitrogen 4 mg/dL (7-20) Creatinine 0.7 mg/dL (0.6-1.0) Estimated GFR (Cockcroft-Gault) 100.4 BUN/Creatinine Ratio 6 (6-20) Glucose Level 91 mg/dL (70-99) Calcium Level 8.2 mg/dL (8.5-10.1) Total Bilirubin 0.3 mg/dL (0.2-1.0) Aspartate Amino Transf (AST/SGOT) 10 U/L (15-37) Alanine Aminotransferase (ALT/SGPT) 13 U/L (14-59) Alkaline Phosphatase 124 U/L (46-116) Total Protein 6.3 g/dL (6.4-8.2) Albumin 2.8 g/dL (3.4-5.0) Albumin/Globulin Ratio 0.8 (1.0-1.7) Laboratory Tests Test 06/15/18 14:30 06/15/18 14:34 06/15/18 14:39 06/15/18 14:50 Urine Collection Type Unknown Urine Color Yellow Urine Clarity Clear Urine pH 6.0 Urine Specific [place] 1.020 Urine Protein 30 mg/dL (NEG-TRACE) Urine Glucose (UA) 100 mg/dL (NEG) Urine Ketones (Stick) Negative mg/dL (NEG) Urine Blood Trace (NEG) Urine Nitrite Positive (NEG) Urine Bilirubin Negative (NEG) Urine Urobilinogen Dipstick 1.0 mg/dL (0.2 mg/dL) Urine Leukocyte Esterase Moderate (NEG) Urine RBC Rare /HPF (0-2) Urine WBC 11-20 /HPF (0-4) Urine Squamous Epithelial Cells Mod /LPF Urine Bacteria Many /HPF (0-FEW) Urine Mucus Mod /LPF Bedside Urine HCG, Qualitative Hcg negative (Negative) Group A Streptococcus Rapid Negative (NEGATIVE) White Blood Count 19.0 x10^3/uL (4.0-11.0) Red Blood Count 3.88 x10^6/uL (3.50-5.40) Hemoglobin 10.6 g/dL (12.0-15.5) Hematocrit 32.0 % (36.0-47.0) Mean Corpuscular Volume 82 fL (79-100) Mean Corpuscular Hemoglobin 27 pg (25-35) Mean Corpuscular Hemoglobin Concent 33 g/dL (31-37) Red Cell Distribution Width 16.3 % (11.5-14.5) Platelet Count 341 x10^3/uL (140-400) Neutrophils (%) (Auto) 86 % (31-73) Lymphocytes (%) (Auto) 6 % (24-48) Monocytes (%) (Auto) 8 % (0-9) Eosinophils (%) (Auto) 0 % (0-3) Basophils (%) (Auto) 0 % (0-3) Neutrophils # (Auto) 16.3 x10^3uL (1.8-7.7) Lymphocytes # (Auto) 1.1 x10^3/uL (1.0-4.8) Monocytes # (Auto) 1.5 x10^3/uL (0.0-1.1) Eosinophils # (Auto) 0.0 x10^3/uL (0.0-0.7) Basophils # (Auto) 0.1 x10^3/uL (0.0-0.2) Segmented Neutrophils % 87 % (35-66) Lymphocytes % 1 % (24-48) Monocytes % 12 % (0-10) Platelet Estimate Adequate (ADEQUATE) Sodium Level 134 mmol/L (136-145) Potassium Level 2.9 mmol/L (3.5-5.1) Chloride Level 100 mmol/L (98-107) Carbon Dioxide Level 22 mmol/L (21-32) Anion Gap 12 (6-14) Blood Urea Nitrogen 8 mg/dL (7-20) Creatinine 0.9 mg/dL (0.6-1.0) Estimated GFR (Cockcroft-Gault) 75.1 BUN/Creatinine Ratio 9 (6-20) Glucose Level 106 mg/dL (70-99) Calcium Level 8.6 mg/dL (8.5-10.1) Total Bilirubin 0.3 mg/dL (0.2-1.0) Aspartate Amino Transf (AST/SGOT) 11 U/L (15-37) Alanine Aminotransferase (ALT/SGPT) 14 U/L (14-59) Alkaline Phosphatase 127 U/L (46-116) Total Protein 7.8 g/dL (6.4-8.2) Albumin 3.8 g/dL (3.4-5.0) Albumin/Globulin Ratio 1.0 (1.0-1.7) Lipase 72 U/L (73-393) Test 06/15/18 15:40 06/16/18 08:50 Lactic Acid Level 0.4 mmol/L (0.4-2.0) White Blood Count 14.7 x10^3/uL (4.0-11.0) Red Blood Count 3.35 x10^6/uL (3.50-5.40) Hemoglobin 9.0 g/dL (12.0-15.5) Hematocrit 28.2 % (36.0-47.0) Mean Corpuscular Volume 84 fL (79-100) Mean Corpuscular Hemoglobin 27 pg (25-35) Mean Corpuscular Hemoglobin Concent 32 g/dL (31-37) Red Cell Distribution Width 16.7 % (11.5-14.5) Platelet Count 252 x10^3/uL (140-400) Neutrophils (%) (Auto) 82 % (31-73) Lymphocytes (%) (Auto) 9 % (24-48) Monocytes (%) (Auto) 9 % (0-9) Eosinophils (%) (Auto) 0 % (0-3) Basophils (%) (Auto) 0 % (0-3) Neutrophils # (Auto) 12.0 x10^3uL (1.8-7.7) Lymphocytes # (Auto) 1.3 x10^3/uL (1.0-4.8) Monocytes # (Auto) 1.2 x10^3/uL (0.0-1.1) Eosinophils # (Auto) 0.0 x10^3/uL (0.0-0.7) Basophils # (Auto) 0.0 x10^3/uL (0.0-0.2) Sodium Level 134 mmol/L (136-145) Potassium Level 3.6 mmol/L (3.5-5.1) Chloride Level 103 mmol/L (98-107) Carbon Dioxide Level 20 mmol/L (21-32) Anion Gap 11 (6-14) Blood Urea Nitrogen 4 mg/dL (7-20) Creatinine 0.7 mg/dL (0.6-1.0) Estimated GFR (Cockcroft-Gault) 100.4 BUN/Creatinine Ratio 6 (6-20) Glucose Level 91 mg/dL (70-99) Calcium Level 8.2 mg/dL (8.5-10.1) Total Bilirubin 0.3 mg/dL (0.2-1.0) Aspartate Amino Transf (AST/SGOT) 10 U/L (15-37) Alanine Aminotransferase (ALT/SGPT) 13 U/L (14-59) Alkaline Phosphatase 124 U/L (46-116) Total Protein 6.3 g/dL (6.4-8.2) Albumin 2.8 g/dL (3.4-5.0) Albumin/Globulin Ratio 0.8 (1.0-1.7) Medications Current Medications Sodium Chloride 1,000 ml @ 1,000 mls/hr 1X ONCE IV Last administered on at 14:56; Start 06/15/18 at 14:15; Stop 06/15/18 at 15:14; Status DC Morphine Sulfate (Morphine Sulfate) 4 mg 1X ONCE IV Last administered on at 14:57; Start 06/15/18 at 14:15; Stop 06/15/18 at 14:16; Status DC Ondansetron HCl (Zofran) 4 mg 1X ONCE IV Last administered on 06/15/18at 14:57 ; Start 06/15/18 at 14:15; Stop 06/15/18 at 14:16; Status DC Iohexol (Omnipaque 300 Mg/ml) 75 ml 1X ONCE IV Last administered on 06/15/18at 15:43; Start 06/15/18 at 14:30; Stop 06/15/18 at 14:31; Status DC Info (CONTRAST GIVEN -- Rx MONITORING) 1 each PRN DAILY PRN MC SEE COMMENTS; Start 06/15/18 at 14:30; Stop 06/17/18 at 14:29 Sodium Chloride 1,000 ml @ 1,000 mls/hr 1X ONCE IV Last administered on at 15:52; Start 06/15/18 at 15:30; Stop 06/15/18 at 16:29; Status DC Ceftriaxone Sodium 50 ml @ 100 mls/hr 1X ONCE IV ; Start 06/15/18 at 15:30; Stop 06/15/18 at 15:30; Status DC Levofloxacin/ Dextrose 150 ml @ 100 mls/hr 1X ONCE IV Last administered on 07/23at 15:53; Start 06/15/18 at 15:30; Stop 06/15/18 at 16:59; Status DC Potassium Chloride (Klor-Con) 40 meq 1X ONCE PO Last administered on at 15:52; Start 06/15/18 at 15:45; Stop 06/15/18 at 15:46; Status DC Ondansetron HCl (Zofran) 4 mg PRN Q8HRS PRN IV NAUSEA/VOMITING; Start 06/15/18 at 16:45; Stop 06/16/18 at 09:09; Status DC Fentanyl Citrate (Fentanyl 2ml Vial) 50 mcg PRN Q1HR PRN IV PAIN Last administered on 06/16/18at 06:12; Start 06/15/18 at 16:45; Stop 06/16/18 at 16:44 Acetaminophen (Tylenol) 650 mg PRN Q4HRS PRN PO FEVER Last administered on 06/15at 22:09; Start 06/15/18 at 16:45; Stop 06/16/18 at 09:17; Status DC Levofloxacin/ Dextrose (Levaquin Per Pharmacy) 1 each PRN DAILY PRN MC SEE COMMENTS; Start 06/15/18 at 18:45 Sodium Chloride 1,000 ml @ 125 mls/hr Q8H IV Last administered on 06/16/18at 05 :45; Start 06/15/18 at 18:45 Levofloxacin/ Dextrose 100 ml @ 100 mls/hr Q24H IV ; Start 06/16/18 at 16:00 Ibuprofen (Motrin) 600 mg PRN Q6HRS PRN PO INFLAMMATION Last administered on 07/23at 23:05; Start 06/15/18 at 23:00 Ondansetron HCl (Zofran) 4 mg PRN Q6HRS PRN IV NAUSEA/VOMITING; Start 06/16/18 at 09:15 Acetaminophen (Tylenol) 650 mg PRN Q6HRS PRN PO fever; Start 06/16/18 at 09:15 Acetaminophen/ Codeine Phosphate (Tylenol #3) 1 tab PRN Q6HRS PRN PO PAIN Last administered on 9/11/18at 10:04; Start 06/16/18 at 09:15 Active Scripts Active Vitals/I & O Vital Sign - Last 24 Hours 06/15/18 06/15/18 06/15/18 06/15/18 13:45 13:55 14:45 14:57 Temp 98.2 98.2 98.2 98.2 Pulse 122 124 110 Resp 14 19 16 16 B/P (MAP) 127/69 (88) 127/69 (88) 109/65 (80) Pulse Ox 98 98 98 97 O2 Delivery Room Air Room Air Room Air Room Air 06/15/18 06/15/18 06/15/18 06/15/18 15:15 15:45 16:15 17:15 Pulse 104 104 99 97 Resp 16 16 18 16 B/P (MAP) 103/54 (70) 112/58 (76) 90/54 (66) 92/53 (66) Pulse Ox 98 98 99 97 O2 Delivery Room Air Room Air Room Air Room Air 06/15/18 06/15/18 06/15/18 06/16/18 19:04 20:00 23:00 00:37 Temp 99.0 102.9 100.0 99.0 102.9 100.0 Pulse 115 135 111 Resp 19 18 B/P (MAP) 98/64 (75) 121/72 (88) 110/56 (74) Pulse Ox 98 97 O2 Delivery Room Air Room Air 06/16/18 06/16/18 06/16/18 06/16/18 03:00 04:06 10:04 11:00 Temp 97.9 100.9 97.9 100.9 Pulse 107 117 Resp 16 20 B/P (MAP) 84/42 (56) 96/59 (71) 116/60 (78) Pulse Ox 94 94 96 O2 Delivery Room Air Room Air 06/16/18 12:30 Pulse Ox 96 Intake and Output 06/15/18 06/15/18 06/16/18 15:00 23:00 07:00 Intake Total 2150 ml 2800 ml Balance 2150 ml 2800 ml FLORENCIA AHMADI MD Jun 16, 2018 13:12
[2018-06-16 15:00] VITALS: BP 96/49
[2018-06-16 19:00] VITALS: BP 104/60
[2018-06-16] MEDS: LACTOBACILLUS RHAMNOSUS GG 1 CAPSULE. PO SCH (21:24)
[2018-06-16] MEDS: IBUPROFEN 600 MG TABLET. PO PRN (21:25)
[2018-06-16 22:37] VITALS: BP 94/59
[2018-06-17] MEDS: ACETAMINOPHEN/CODEINE 300/30MG TABLET. PO PRN ×2 (01:08→09:52)
[2018-06-17] MEDS: IV NORMAL SALINE 1000ML BAG 1,000 ML IV SCH (02:21)
[2018-06-17 02:40] VITALS: BP 97/62
[2018-06-17] MEDS: IBUPROFEN 600 MG TABLET. PO PRN ×2 (03:59→14:09)
[2018-06-17 05:03] LABS: BASO % 0 % (0-3); EOS # 0.1 x10^3/uL (0.0-0.7); EOS % 1 % (0-3); HEMATOCRIT 22.8 % (36.0-47.0); HEMOGLOBIN 7.6 g/dL (12.0-15.5); LYMPH # 2.3 x10^3/uL (1.0-4.8); LYMPH % 24 % (24-48); MEAN CORPUSCULAR HEMOGLOBIN 28 pg (25-35); MEAN CORPUSCULAR HGB CONC 33 g/dL (31-37); MEAN CORPUSCULAR VOLUME 84 fL (79-100); MONO % 10 % (0-9); NEUT # 6.4 x10^3uL (1.8-7.7); NEUT % 65 % (31-73); PLATELET COUNT 228 x10^3/uL (140-400); RED BLOOD COUNT 2.73 x10^6/uL (3.50-5.40); RED CELL DISTRIBUTION WIDTH 16.4 % (11.5-14.5); WHITE BLOOD COUNT 9.8 x10^3/uL (4.0-11.0)
[2018-06-17 05:32] LABS: CALCIUM 7.7 mg/dL (8.5-10.1); CREATININE 0.6 mg/dL (0.6-1.0); GFR 119.9
[2018-06-17 07:00] VITALS: BP 87/55
[2018-06-17] MEDS ORDERED: POTASSIUM CHLORIDE 20 MEQ TABLET.ER. PO ONE ×2 (09:30)
[2018-06-17] MEDS: LACTOBACILLUS RHAMNOSUS GG 1 CAPSULE. PO SCH (09:52)
--- NOTE | 2018-06-17 10:50 | PDOC ---
Infectious Disease Note Vital Sign Vital Signs Vital Signs Date Time Temp Pulse Resp B/P (MAP) Pulse Ox O2 Delivery O2 Flow Rate FiO2 06/17/18 09:52 16 Room Air 06/17/18 07:00 97.8 93 87/55 (66) 96 97.8 Labs Lab Laboratory Tests Test 06/17/18 03:50 White Blood Count 9.8 x10^3/uL (4.0-11.0) Red Blood Count 2.73 x10^6/uL (3.50-5.40) Hemoglobin 7.6 g/dL (12.0-15.5) Hematocrit 22.8 % (36.0-47.0) Mean Corpuscular Volume 84 fL (79-100) Mean Corpuscular Hemoglobin 28 pg (25-35) Mean Corpuscular Hemoglobin Concent 33 g/dL (31-37) Red Cell Distribution Width 16.4 % (11.5-14.5) Platelet Count 228 x10^3/uL (140-400) Neutrophils (%) (Auto) 65 % (31-73) Lymphocytes (%) (Auto) 24 % (24-48) Monocytes (%) (Auto) 10 % (0-9) Eosinophils (%) (Auto) 1 % (0-3) Basophils (%) (Auto) 0 % (0-3) Neutrophils # (Auto) 6.4 x10^3uL (1.8-7.7) Lymphocytes # (Auto) 2.3 x10^3/uL (1.0-4.8) Monocytes # (Auto) 1.0 x10^3/uL (0.0-1.1) Eosinophils # (Auto) 0.1 x10^3/uL (0.0-0.7) Basophils # (Auto) 0.0 x10^3/uL (0.0-0.2) Sodium Level 139 mmol/L (136-145) Potassium Level 3.0 mmol/L (3.5-5.1) Chloride Level 106 mmol/L (98-107) Carbon Dioxide Level 21 mmol/L (21-32) Anion Gap 12 (6-14) Blood Urea Nitrogen 3 mg/dL (7-20) Creatinine 0.6 mg/dL (0.6-1.0) Estimated GFR (Cockcroft-Gault) 119.9 Glucose Level 100 mg/dL (70-99) Calcium Level 7.7 mg/dL (8.5-10.1) Thyroid Stimulating Hormone (TSH) 3.733 uIU/mL (0.358-3.74) Cortisol AM Sample 3.3 ug/dL (4.3-22.4) Micro Microbiology 06/15/18 Blood Culture - Preliminary, Resulted NO GROWTH AFTER 1 DAY 06/15/18 Throat Culture - Final, Complete 06/15/18 - Final, Complete Objective Assessment Fever UTI Leukocytosis Ovarian cyst Plan Plan of Care isaiah wilson d/ADAM Fried MD Jun 17, 2018 10:49
[2018-06-17 11:01] VITALS: BP 99/63
[2018-06-17] MEDS ORDERED: LEVO500T59 PO (11:15)
--- NOTE | 2018-06-17 11:18 | PDOC3 ---
Discharge Summary Visit Information Date of Admission: Jun 15, 2018 Date of Discharge: Jun 17, 2018 Admitting Diagnosis Comment: UTI, no pyelonephritis Sepsis POA with target organ - hypotension Fevers Mild hypokalemia Mild hyponatremia Hypotension sec to HYPOCORTISOLISM - new dx Final Diagnosis Problems Medical Problems: (1) Hypokalemia Status: Acute (2) Pyelonephritis Status: Acute Brief Hospital Course Allergies Allergies Coded Allergies Type Severity Reaction Last Updated Verified sertraline Allergy Intermediate 12/07/16 Yes amoxicillin Adverse Reaction Intermediate Nausea and Vomiting 04/17/14 No clavulanic acid Adverse Reaction Intermediate Nausea and Vomiting 04/17/14 No Vital Signs Vital Signs Date Time Temp Pulse Resp B/P (MAP) Pulse Ox O2 Delivery O2 Flow Rate FiO2 06/17/18 11:01 97.8 77 20 99/63 (75) 99 Room Air 97.8 Lab Results Laboratory Tests Test 06/15/18 14:30 06/15/18 14:34 06/15/18 14:39 06/15/18 14:50 Urine Collection Type Unknown Urine Color Yellow Urine Clarity Clear Urine pH 6.0 Urine Specific [place] 1.020 Urine Protein 30 mg/dL (NEG-TRACE) Urine Glucose (UA) 100 mg/dL (NEG) Urine Ketones (Stick) Negative mg/dL (NEG) Urine Blood Trace (NEG) Urine Nitrite Positive (NEG) Urine Bilirubin Negative (NEG) Urine Urobilinogen Dipstick 1.0 mg/dL (0.2 mg/dL) Urine Leukocyte Esterase Moderate (NEG) Urine RBC Rare /HPF (0-2) Urine WBC 11-20 /HPF (0-4) Urine Squamous Epithelial Cells Mod /LPF Urine Bacteria Many /HPF (0-FEW) Urine Mucus Mod /LPF Bedside Urine HCG, Qualitative Hcg negative (Negative) Group A Streptococcus Rapid Negative (NEGATIVE) White Blood Count 19.0 x10^3/uL (4.0-11.0) Red Blood Count 3.88 x10^6/uL (3.50-5.40) Hemoglobin 10.6 g/dL (12.0-15.5) Hematocrit 32.0 % (36.0-47.0) Mean Corpuscular Volume 82 fL (79-100) Mean Corpuscular Hemoglobin 27 pg (25-35) Mean Corpuscular Hemoglobin Concent 33 g/dL (31-37) Red Cell Distribution Width 16.3 % (11.5-14.5) Platelet Count 341 x10^3/uL (140-400) Neutrophils (%) (Auto) 86 % (31-73) Lymphocytes (%) (Auto) 6 % (24-48) Monocytes (%) (Auto) 8 % (0-9) Eosinophils (%) (Auto) 0 % (0-3) Basophils (%) (Auto) 0 % (0-3) Neutrophils # (Auto) 16.3 x10^3uL (1.8-7.7) Lymphocytes # (Auto) 1.1 x10^3/uL (1.0-4.8) Monocytes # (Auto) 1.5 x10^3/uL (0.0-1.1) Eosinophils # (Auto) 0.0 x10^3/uL (0.0-0.7) Basophils # (Auto) 0.1 x10^3/uL (0.0-0.2) Segmented Neutrophils % 87 % (35-66) Lymphocytes % 1 % (24-48) Monocytes % 12 % (0-10) Platelet Estimate Adequate (ADEQUATE) Sodium Level 134 mmol/L (136-145) Potassium Level 2.9 mmol/L (3.5-5.1) Chloride Level 100 mmol/L (98-107) Carbon Dioxide Level 22 mmol/L (21-32) Anion Gap 12 (6-14) Blood Urea Nitrogen 8 mg/dL (7-20) Creatinine 0.9 mg/dL (0.6-1.0) Estimated GFR (Cockcroft-Gault) 75.1 BUN/Creatinine Ratio 9 (6-20) Glucose Level 106 mg/dL (70-99) Calcium Level 8.6 mg/dL (8.5-10.1) Total Bilirubin 0.3 mg/dL (0.2-1.0) Aspartate Amino Transf (AST/SGOT) 11 U/L (15-37) Alanine Aminotransferase (ALT/SGPT) 14 U/L (14-59) Alkaline Phosphatase 127 U/L (46-116) Total Protein 7.8 g/dL (6.4-8.2) Albumin 3.8 g/dL (3.4-5.0) Albumin/Globulin Ratio 1.0 (1.0-1.7) Lipase 72 U/L (73-393) Test 06/15/18 15:40 06/16/18 08:50 06/17/18 03:50 Lactic Acid Level 0.4 mmol/L (0.4-2.0) White Blood Count 14.7 x10^3/uL (4.0-11.0) 9.8 x10^3/uL (4.0-11.0) Red Blood Count 3.35 x10^6/uL (3.50-5.40) 2.73 x10^6/uL (3.50-5.40) Hemoglobin 9.0 g/dL (12.0-15.5) 7.6 g/dL (12.0-15.5) Hematocrit 28.2 % (36.0-47.0) 22.8 % (36.0-47.0) Mean Corpuscular Volume 84 fL (79-100) 84 fL (79-100) Mean Corpuscular Hemoglobin 27 pg (25-35) 28 pg (25-35) Mean Corpuscular Hemoglobin Concent 32 g/dL (31-37) 33 g/dL (31-37) Red Cell Distribution Width 16.7 % (11.5-14.5) 16.4 % (11.5-14.5) Platelet Count 252 x10^3/uL (140-400) 228 x10^3/uL (140-400) Neutrophils (%) (Auto) 82 % (31-73) 65 % (31-73) Lymphocytes (%) (Auto) 9 % (24-48) 24 % (24-48) Monocytes (%) (Auto) 9 % (0-9) 10 % (0-9) Eosinophils (%) (Auto) 0 % (0-3) 1 % (0-3) Basophils (%) (Auto) 0 % (0-3) 0 % (0-3) Neutrophils # (Auto) 12.0 x10^3uL (1.8-7.7) 6.4 x10^3uL (1.8-7.7) Lymphocytes # (Auto) 1.3 x10^3/uL (1.0-4.8) 2.3 x10^3/uL (1.0-4.8) Monocytes # (Auto) 1.2 x10^3/uL (0.0-1.1) 1.0 x10^3/uL (0.0-1.1) Eosinophils # (Auto) 0.0 x10^3/uL (0.0-0.7) 0.1 x10^3/uL (0.0-0.7) Basophils # (Auto) 0.0 x10^3/uL (0.0-0.2) 0.0 x10^3/uL (0.0-0.2) Sodium Level 134 mmol/L (136-145) 139 mmol/L (136-145) Potassium Level 3.6 mmol/L (3.5-5.1) 3.0 mmol/L (3.5-5.1) Chloride Level 103 mmol/L (98-107) 106 mmol/L (98-107) Carbon Dioxide Level 20 mmol/L (21-32) 21 mmol/L (21-32) Anion Gap 11 (6-14) 12 (6-14) Blood Urea Nitrogen 4 mg/dL (7-20) 3 mg/dL (7-20) Creatinine 0.7 mg/dL (0.6-1.0) 0.6 mg/dL (0.6-1.0) Estimated GFR (Cockcroft-Gault) 100.4 119.9 BUN/Creatinine Ratio 6 (6-20) Glucose Level 91 mg/dL (70-99) 100 mg/dL (70-99) Calcium Level 8.2 mg/dL (8.5-10.1) 7.7 mg/dL (8.5-10.1) Total Bilirubin 0.3 mg/dL (0.2-1.0) Aspartate Amino Transf (AST/SGOT) 10 U/L (15-37) Alanine Aminotransferase (ALT/SGPT) 13 U/L (14-59) Alkaline Phosphatase 124 U/L (46-116) Total Protein 6.3 g/dL (6.4-8.2) Albumin 2.8 g/dL (3.4-5.0) Albumin/Globulin Ratio 0.8 (1.0-1.7) Thyroid Stimulating Hormone (TSH) 3.733 uIU/mL (0.358-3.74) Cortisol AM Sample 3.3 ug/dL (4.3-22.4) Laboratory Tests Test 06/17/18 03:50 White Blood Count 9.8 x10^3/uL (4.0-11.0) Red Blood Count 2.73 x10^6/uL (3.50-5.40) Hemoglobin 7.6 g/dL (12.0-15.5) Hematocrit 22.8 % (36.0-47.0) Mean Corpuscular Volume 84 fL (79-100) Mean Corpuscular Hemoglobin 28 pg (25-35) Mean Corpuscular Hemoglobin Concent 33 g/dL (31-37) Red Cell Distribution Width 16.4 % (11.5-14.5) Platelet Count 228 x10^3/uL (140-400) Neutrophils (%) (Auto) 65 % (31-73) Lymphocytes (%) (Auto) 24 % (24-48) Monocytes (%) (Auto) 10 % (0-9) Eosinophils (%) (Auto) 1 % (0-3) Basophils (%) (Auto) 0 % (0-3) Neutrophils # (Auto) 6.4 x10^3uL (1.8-7.7) Lymphocytes # (Auto) 2.3 x10^3/uL (1.0-4.8) Monocytes # (Auto) 1.0 x10^3/uL (0.0-1.1) Eosinophils # (Auto) 0.1 x10^3/uL (0.0-0.7) Basophils # (Auto) 0.0 x10^3/uL (0.0-0.2) Sodium Level 139 mmol/L (136-145) Potassium Level 3.0 mmol/L (3.5-5.1) Chloride Level 106 mmol/L (98-107) Carbon Dioxide Level 21 mmol/L (21-32) Anion Gap 12 (6-14) Blood Urea Nitrogen 3 mg/dL (7-20) Creatinine 0.6 mg/dL (0.6-1.0) Estimated GFR (Cockcroft-Gault) 119.9 Glucose Level 100 mg/dL (70-99) Calcium Level 7.7 mg/dL (8.5-10.1) Thyroid Stimulating Hormone (TSH) 3.733 uIU/mL (0.358-3.74) Cortisol AM Sample 3.3 ug/dL (4.3-22.4) Brief Hospital Course Ms. Hartley is a 28 old female history of pyelonephritis in the past admitted for a UTI, this time no pyelonephritis. Low-grade temperatures, no white count. She could not wait for the urine culture. I did consult infectious disease bec of persistent low-grade temperatures. Was getting IV Levaquin. Okay for by mouth Levaquin for home. Patient wants to go home. Course remarkable for hypotension needing fluids at 1 25 mL an hour. I did check TSH and cortisol, cortisol is less than 3.3 hence I'm starting hydrocortisone 20 in the morning and 10 daily at bedtime. Advised repeat cortisol levels in about 1 month's time. I provided all these are excess for her. Discharge time 35 minutes. Discharge education counseling especially her low cortisol levels. Discussed with RN and hypocortosolism disease Discharge Information Condition at Discharge: Improved, Stable Disposition/Orders: D/C to Home Scheduled Levofloxacin (Levaquin) 500 Mg Tablet, 500 MG PO DAILY06 for 10 Days, #10 Prescribed by: FLORENCIA AHMADI on 06/17/18 1115 Discontinued Medications Carisoprodol (Soma) 350 Mg Tablet, 1 TAB PO BID, #30 (Reported) Entered as Reported by: TEJAS ROSADO on 08/16/16 1600 Last Action: Discontinued on 06/16/18352 by GAYE GASCA [stadol] , 1 SPRAY NS PRN Q6HRS PRN for PAIN, (Reported) Entered as Reported by: Lori Miller on 08/17/16 1222 Last Action: Discontinued on 06/16/18352 by FLORENCIA MACHADO MD Jun 17, 2018 11:18
[2018-06-17] MEDS ORDERED: HYDROCORTISONE 10 MG TABLET PO SCH ×2 (11:30→21:00)
--- NOTE | 2018-06-17 19:27 | CONS ---
DATE OF CONSULTATION: 06/17/2018 REQUESTING PHYSICIAN: Dr. Fischer. REASON FOR CONSULTATION: Fever and UTI. HISTORY OF PRESENT ILLNESS: This is a 28-year-old female who came in with right flank and right lower quadrant pain and fever. The patient did not have any urinary symptoms. The patient had some nausea and vomiting. Nausea and vomiting has settled down. The patient did have fever yesterday, but so far, she has not had any fever. The patient is feeling much better. The patient is receiving levofloxacin. PAST MEDICAL HISTORY: Positive for anxiety and depression. PAST SURGICAL HISTORY: Cholecystectomy. SOCIAL HISTORY: Negative for smoking, alcohol, illicit drug use. ALLERGIES: Allergic to AUGMENTIN, causes stomach upset and SERTRALINE. CURRENT MEDICATIONS: The patient is on Levaquin. REVIEW OF SYSTEMS: As per HPI, all other systems reviewed are negative. PHYSICAL EXAMINATION: GENERAL: Alert, oriented female, not in distress. VITAL SIGNS: Stable. Afebrile now with T-max 101.5. HEENT: Anicteric. NECK: Supple, no JVP, no lymphadenopathy. LUNGS: Clear. HEART: S1, S2 regular. ABDOMEN: Benign. EXTREMITIES: No edema or cyanosis. SKIN: Unremarkable. NEUROLOGIC: The patient is neurologically intact. LABORATORY DATA: White count is 9.8, down from 19,000. BUN and creatinine is normal. Group A strep negative. Urinalysis showed 11-20 wbc's. Blood culture is negative. Urine culture was pending. Throat culture negative. Abdominal CT showed no pyelonephritis, has a cystic right adnexal lesion, which with pelvic ultrasound, it turned out to be ovarian cyst only. IMPRESSION: 1. Fever. 2. Leukocytosis, most likely from ovarian cyst and the pain also right lower quadrant is from ovarian cyst. 3. Slightly abnormal urinalysis/urinary tract infection. RECOMMENDATIONS: Recommend p.o. Levaquin. If she does not have a fever today, the patient can be discharged home on p.o. antibiotics. So far, cultures are negative. She can check with our office for final culture results for adjustment if needed. Thank you very much, Dr. Fischer, for giving me the opportunity to participate in this patient's care. ADAM HANCOCK MD DR: GONZALEZ/mikala JOB#: [id number] / [id number]
[2018-06-18] MEDS ORDERED: POTASSIUM CHLORIDE 20 MEQ TABLET.ER. PO SCH (08:00)
== END 2018-06-17 15:35 | disposition home or self-care (01) | DRG 872 ==
LOC: ER 13:42 → ED HOLD 16:23 → 5 SOUTH 17:15
PROVIDERS: ADMIT Internal Medicine; ATTEND Internal Medicine
DX: A41.9 Sepsis, unspecified organism (principal); E87.1 Hypo-osmolality and hyponatremia; N39.0 Urinary tract infection, site not specified; D64.9 Anemia, unspecified; E87.6 Hypokalemia; G89.29 Other chronic pain; N83.209 Unspecified ovarian cyst, unspecified side; F32.9 Major depressive disorder, single episode, unspecified; F41.9 Anxiety disorder, unspecified; Z90.49 Acquired absence of other specified parts of digestive tract; Z83.3 Family history of diabetes mellitus; Z88.1 Allergy status to other antibiotic agents; Z88.8 Allergy status to other drugs, medicaments and biological substances
CPT/HCPCS: 36415; 74177; 76856; 80048; 80053; 81001; 81025; 82533; 83605; 83690; 84443; 85007; 85025; 87040; 87070; 87086; 87880; 96361; 96365; 96375; J1956; J2270; J2405; J3010; J7030; Q9967; 99285-25